=== PATIENT | female | born 1955 | race Caucasian/White ===

== ENCOUNTER → 2016-04-30 | Outpatient (CLI) | payer OTHER | LOC: FIMAGING 08:35 | PROVIDERS: ATTEND Internal Medicine Hematology & Oncology | DX: C50.919 Malignant neoplasm of unspecified site of unspecified female breast (principal) | CPT/HCPCS: A9503 ==

== ENCOUNTER → 2017-01-07 | Outpatient (CLI) | payer MEDICAID | LOC: FIMAGING 07:50 | DX: C50.812 Malignant neoplasm of overlapping sites of left female breast (principal) | CPT/HCPCS: 78306; A9503 ==

== ENCOUNTER → 2017-04-01 | Outpatient (CLI) | payer MEDICAID | LOC: FIMAGING 08:36 | PROVIDERS: ATTEND Internal Medicine Hematology & Oncology | DX: M89.8X0 Other specified disorders of bone, multiple sites (principal); M19.011 Primary osteoarthritis, right shoulder; M19.012 Primary osteoarthritis, left shoulder; C50.812 Malignant neoplasm of overlapping sites of left female breast | CPT/HCPCS: 78306; A9503 ==